=== PATIENT | male | born 1955 | race Caucasian/White ===

== ENCOUNTER 2017-10-09 08:30 | Outpatient (RCR) | payer OTHER | END 2017-10-09 09:00 | disposition home or self-care (01) | LOC: PT 08:30 | DX: Z47.1 Aftercare following joint replacement surgery (principal); Z96.652 Presence of left artificial knee joint ==

== ENCOUNTER → 2018-01-17 | Outpatient (CLI) | payer OTHER | LOC: RAD 08:02 | DX: Z47.1 Aftercare following joint replacement surgery (principal); Z96.652 Presence of left artificial knee joint ==

== ENCOUNTER → 2018-02-12 | Day surgery (SDC) | payer OTHER | LOC: MSO 07:11 | DX: Z12.11 Encounter for screening for malignant neoplasm of colon (principal); Z87.19 Personal history of other diseases of the digestive system; G47.33 Obstructive sleep apnea (adult) (pediatric) | CPT/HCPCS: 00812; J2704; J7120 ==

== ENCOUNTER → 2018-03-12 | Outpatient (CLI) | payer OTHER | LOC: RAD 08:21 | DX: N28.89 Other specified disorders of kidney and ureter (principal) | CPT/HCPCS: Q9967 ==

== ENCOUNTER → 2018-05-03 | Outpatient (CLI) | payer OTHER | LOC: RAD 11:18 | DX: M54.2 Cervicalgia (principal); Z85.528 Personal history of other malignant neoplasm of kidney | CPT/HCPCS: Q9967 ==

== ENCOUNTER → 2018-09-14 | Outpatient (CLI) | payer BC ==
[2018-09-14 10:50] LABS: CALCIUM 9.9 mg/dL (8.4-10.2); POTASSIUM 4.4 mmol/L (3.6-5.0)
[2018-09-14 12:13] LABS: URINE APPEARANCE CLEAR; URINE BILIRUBIN NEGATIVE (NEGATIVE); URINE COLOR YELLOW; URINE GLUCOSE NEGATIVE (NEGATIVE); URINE KETONE NEGATIVE (NEGATIVE); URINE NITRATE NEGATIVE (NEGATIVE); URINE PROTEIN(semi-quant) 1+ mg/dL (NEGATIVE); URINE UROBILINOGEN NORMAL (NORMAL)
[2018-09-14 12:14] LABS: URINE BLOOD NEGATIVE (NEGATIVE); URINE LEUKOCYTE ESTERASE NEGATIVE (NEGATIVE)
== END ==
LOC: LAB 10:23
PROVIDERS: Internal Medicine
DX: C64.9 Malignant neoplasm of unspecified kidney, except renal pelvis (principal); N18.3 Chronic kidney disease, stage 3 (moderate); E66.9 Obesity, unspecified

== ENCOUNTER → 2020-01-14 | Outpatient (CLI) | payer BC ==
[2020-01-14 14:26] LABS: POTASSIUM 4.3 mmol/L (3.5-5.1)
[2020-01-14 14:28] LABS: CALCIUM 9.3 mg/dL (8.3-10.5)
== END ==
LOC: LAB 13:51
PROVIDERS: Internal Medicine Nephrology
DX: N18.3 Chronic kidney disease, stage 3 (moderate) (principal)

== ENCOUNTER → 2020-08-24 | Outpatient (CLI) | payer BC | LOC: LAB 12:04 | PROVIDERS: Urology | DX: C64.1 Malignant neoplasm of right kidney, except renal pelvis (principal) ==

== ENCOUNTER → 2020-10-19 | Outpatient (CLI) | payer BC ==
[2020-10-19 13:27] LABS: POTASSIUM 4.4 mmol/L (3.5-5.1)
[2020-10-19 13:28] LABS: CALCIUM 8.9 mg/dL (8.3-10.5)
[2020-10-22 16:21] LABS: CREATININE OTHER SOURCE AMS
== END ==
LOC: LAB 12:53
PROVIDERS: Internal Medicine Nephrology
DX: N18.30 Chronic kidney disease, stage 3 unspecified (principal); Z90.5 Acquired absence of kidney

== ENCOUNTER → 2021-08-31 | Outpatient (CLI) | payer BC ==
[2021-08-31 12:46] LABS: POTASSIUM 4.2 mmol/L (3.5-5.1)
[2021-08-31 12:47] LABS: CALCIUM 9.6 mg/dL (8.3-10.5)
== END ==
LOC: LAB 11:54
PROVIDERS: Internal Medicine Nephrology
DX: N18.31 Chronic kidney disease, stage 3a (principal); Z90.5 Acquired absence of kidney

== ENCOUNTER → 2021-09-01 | Outpatient (CLI) | payer BC | LOC: LAB 10:25 | PROVIDERS: Internal Medicine Nephrology | DX: N18.31 Chronic kidney disease, stage 3a (principal); Z90.5 Acquired absence of kidney ==

== ENCOUNTER → 2022-05-17 | Outpatient (CLI) | payer MEDICARE, BC | LOC: RAD 08:00 | DX: Z90.5 Acquired absence of kidney (principal) ==

== ENCOUNTER → 2023-06-22 | Day surgery (SDC) | payer MEDICARE, BC ==
[~2023-06-22] MED LIST: BACTRIM DS TAB1 EACH PO; CEPHALEXIN500 M1 PO
== END | disposition home or self-care (01) ==
LOC: MSO 08:50
DX: Z12.11 Encounter for screening for malignant neoplasm of colon (principal); D12.2 Benign neoplasm of ascending colon; D12.4 Benign neoplasm of descending colon; D12.5 Benign neoplasm of sigmoid colon; G47.33 Obstructive sleep apnea (adult) (pediatric); E66.01 Morbid (severe) obesity due to excess calories; Z99.81 Dependence on supplemental oxygen
CPT/HCPCS: 00811; J2704; J3010; J7120

== ENCOUNTER → 2023-09-12 | Outpatient (CLI) | payer MEDICARE, BC ==
[2023-09-12 15:07] LABS: CALCIUM 9.7 mg/dL (8.3-10.5)
== END ==
LOC: LAB 14:43
PROVIDERS: Internal Medicine Nephrology
DX: C64.9 Malignant neoplasm of unspecified kidney, except renal pelvis (principal); N18.31 Chronic kidney disease, stage 3a

== ENCOUNTER → 2024-05-17 | Outpatient (CLI) | payer MEDICARE, BC | LOC: RAD 09:56 | DX: R35.1 Nocturia (principal); Z90.5 Acquired absence of kidney; Z95.818 Presence of other cardiac implants and grafts; Z85.828 Personal history of other malignant neoplasm of skin ==

== ENCOUNTER → 2024-06-28 | Outpatient (CLI) | payer MEDICARE, BC | LOC: RAD 11:26 | DX: I82.432 Acute embolism and thrombosis of left popliteal vein (principal); Z96.652 Presence of left artificial knee joint ==

== ENCOUNTER → 2024-09-16 | Outpatient (CLI) | payer MEDICARE, BC ==
[2024-09-16 13:58] LABS: CALCIUM 9.6 mg/dL (8.3-10.5)
== END ==
LOC: LAB 13:33
PROVIDERS: Internal Medicine Nephrology
DX: C64.9 Malignant neoplasm of unspecified kidney, except renal pelvis (principal); N18.31 Chronic kidney disease, stage 3a

== ENCOUNTER → 2024-10-15 | Outpatient (CLI) | payer MEDICARE, BC | LOC: RAD 09:00 | DX: I82.432 Acute embolism and thrombosis of left popliteal vein (principal) ==